=== PATIENT | male | born 1995 | race Caucasian/White ===

== ENCOUNTER 2017-07-10 20:12 | Emergency (ER) | payer OTHER ==
[~2017-07-10] VITALS: Ht 167.6 cm; Wt 65.9 kg
[2017-07-10] MEDS ORDERED: KETOROLAC TROMETHAMINE 60 MG/2 ML VIAL IM ONE (23:45)
[2017-07-11] MEDS ORDERED: GuaiFENesin/D-METHORPHAN [SUGAR-FREE] 200-20MG/10 ML SYRUP UDCUP PO ONE
[2017-07-11 00:10] VITALS: BP 123/77
== END 2017-07-11 00:12 | disposition home or self-care (01) ==
LOC: EMS 20:13
DX: S29.011A Strain of muscle and tendon of front wall of thorax, initial encounter (principal); F12.90 Cannabis use, unspecified, uncomplicated; F17.210 Nicotine dependence, cigarettes, uncomplicated; X58.XXXA Exposure to other specified factors, initial encounter; Y93.89 Activity, other specified; Y92.89 Other specified places as the place of occurrence of the external cause; Y99.8 Other external cause status
CPT/HCPCS: 96372; 99283; 99406; J1885